=== PATIENT | female | born 1965 | race Native Hawaiian/Other Pacific Islander ===

== ENCOUNTER 2018-12-30 05:55 | Observation (INO) | payer BC, OTHER ==
[2018-12-24 11:12] LABS: Eosinophils # (Auto) 0.2 K/mm3 (0.0-0.4); Eosinophils % (Auto) 2.7 % (0.0-4.3); Monocytes # (Auto) 0.4 K/mm3 (0.0-0.8); Monocytes % (Auto) 5.3 % (0.0-7.3)
--- NOTE | 2018-12-24 11:13 | Anesthesia Consultation ---
Anesthesia Consult and Med Hx Date of service: 12/30/18 - Airway Anesthetic Teeth Evaluation: Good, Crowns ROM Head & Neck: Adequate Mental/Hyoid Distance: Adequate Mallampati Class: Class III Intubation Access Assessment: Probably Good - Pre-Operative Health Status ASA Pre-Surgery Classification: ASA2 Proposed Anesthetic Plan: General Nerve Block: TAP if needed - Cardiovascular System Hx Hypertension: Yes (x 4 yrs) Hx Coronary Artery Disease: No (Saw certified meeting professional and has clearance) - Central Nervous System Hx Psychiatric Problems: No - Gastrointestinal Hx Gastroesophageal Reflux Disease: Yes - Hematic Hx Anemia: Yes (Has had Iron infusions) - Other Systems Hx Alcohol Use: Yes (Occas) Hx Cancer: No
[2018-12-24 11:33] LABS: BUN/Creatinine Ratio 22; Blood Urea Nitrogen 13 mg/dL (7-17); Calcium 9.1 mg/dL (8.4-10.2); Hemolysis Index 14
[2018-12-24 12:01] LABS: Basophils % (Auto) 0.7 % (0.0-1.8); Hematocrit 38.5 % (30.3-42.9); Hemoglobin 13.3 gm/dl (10.1-14.3); Lymphocytes # (Auto) 2.2 K/mm3 (1.2-5.4); Lymphocytes % (Auto) 29.1 % (13.4-35.0); Mean Corpuscular HGB Conc 35 % (30-34); Mean Corpuscular Volume 89 fl (79-97); Platelet Count 315 K/mm3 (140-440); Red Blood Count 4.31 M/mm3 (3.65-5.03); Red Cell Distribution Width 18.2 % (13.2-15.2)
--- NOTE | 2018-12-29 13:27 | History and Physical Report ---
History of Present Illness Date of examination: 12/24/18 Date of admission: 12/30/2018 Chief complaint: heavy periods History of present illness: Visit Type: Pre-Op CC: PRe op. History of Present Illness: pt presents for Pre op visit: BRISAH, bilat Salpigectomy....nguyen Pt here for pre op for LAVH with BS. She has had long h/o fibroid, menorrhagia that has resulted in anemia. All risk/benefits/alternatives were d/w pt and questions were addressed and answered. Pt was given ample time to ask questions all of which were addressed and answered. Consents signed and given to pt to bring to pre op. She has been medically cleared by PCP. Vital Signs: Patient Profile: 53 Years Old Female LMP: 12/12/2018 Height: 58.04 inches Weight: 160 pounds BMI: 33.39 BP sittin / 84 (left arm) Menstrual History: LMP (date): 12/12/2018 Current Method of Contraception: BTL Past History : 5 Term Births: 4 Living Children: 4 Para: 4 Elect. Ab: 1 IMPORT/EXPORT AGENT History Uterine Surgery (not C/S): negative Operations: Tubal Ligation Abdominoplasty u8pper endoscopy. GERD. lost wt and changed diet Hospitalizations: negative Anesthesia Complications: positive Abnormal PAP: negative Uterine Anomaly: negative DMITRY Exposure: negative Infertility: negative Infection History HIV Risk Eval: no Personal hx. of genital herpes: no Hx of STD: None Active Medications (reviewed today): LIPID RX () HCTZ () OMEPRAZOLE () MULTI VITAMIN () Current Allergies (reviewed today): No known allergies Past Medical History: Reviewed history from 11/22/2010 and no changes required: Negative Past Medical History Past Surgical History: Reviewed history from 05/04/2015 and no changes required: Tubal Ligation Abdominoplasty u8pper endoscopy. GERD. lost wt and changed diet Family History Summary: Reviewed history Last on 10/30/2017 and no changes required:12/29/2018 General Comments - FH: father non hodgkins lymphoma stem cell transplant. father triple by pass Social History: Reviewed history from 10/30/2017 and no changes required: Patient is no e/t/d [Risk Factors-CCC] [ROS-CCC] [Labs In-House] Physical Exam Appearance: well developed, well nourished, no acute distress Other Exams Lungs: no rales, rhonchi, or wheezes Heart: S1, S2, no murmur, rub, or gallop Abdomen: soft, non-tender, no masses, bowel sounds normal Extremities: normal alignment, no joint enlargement, crepitus, masses or tenderness; normal tone and strength Genitourinary Exam Comments: deferred until EUA [Problems-CCC] Impression & Recommendations: Problem # 1: Menorrhagia/Menometrorrhagia (ICD-626.2) (SIE77-H29.0) The following medications were removed from the medication list: Ibuprofen 800 Mg Oral Tablet (Ibuprofen) ..... 1 po q6 hr prn pain Orders: Ofc Vst Est 27339 ([id number]-[id number]) -pre op completed Past History Past Medical History: no pertinent history, hypertension Past Surgical History: other (see hpi) IMPORT/EXPORT AGENT History: other (see hpi) Family/Genetic History: other (see hpi) Social history: other (see hpi) Medications and Allergies Allergies Allergy/AdvReac Type Severity Reaction Status Date / Time No Known Allergies Allergy Unverified 12/23/18 17:43 Home Medications Medication Instructions Recorded Confirmed Last Taken Type Fenofibrate 160 mg PO DAILY 12/23/18 12/23/18 Unknown History Omeprazole 40 mg PO DAILY 12/23/18 12/23/18 Unknown History Tranexamic Acid 2 tab PO TID 12/23/18 12/23/18 Unknown History hydroCHLOROthiazide [HCTZ] 25 mg PO DAILY 12/23/18 12/23/18 Unknown History Active Meds: Active Medications Acetaminophen (Tylenol) 650 mg PO PREOP NR Stop: 12/30/18 23:01 Celecoxib (Celebrex) 200 mg PO PREOP NR Stop: 12/30/18 23:00 Gabapentin (Neurontin) 300 mg PO PREOP NR Stop: 12/30/18 23:00 Lactated Ringer's (Lactated Ringers) 1,000 mls @ 125 mls/hr IV DIRECT DANILO Midazolam HCl (Versed) 2 mg IV PREOP NR Stop: 12/30/18 23:59 - Vital Signs Vital signs: Vital Signs Temp Pulse Resp BP Pulse Ox 98.6 F 64 18 135/72 98 12/24/18 10:25 12/24/18 10:25 12/24/18 10:25 12/24/18 10:25 12/24/18 10:25 Temp Pulse Resp BP Pulse Ox 98.6 F 64 18 135/72 98 12/24/18 10:25 12/24/18 10:25 12/24/18 10:25 12/24/18 10:25 12/24/18 10:25 - Physical Exam Cardiovascular: Normal S1, Normal S2 Lungs: Positive: Clear to auscultation, Normal air movement Abdomen: Positive: normal appearance, soft. Negative: distention, tenderness, guarding Genitourinary (Female): Positive: other (deferred until EUA) Extremities: Positive: normal. Negative: tenderness, edema Deep Tendon Reflex Grade: Normal +2 Results Result Diagrams: 12/24/18 10:40 12/24/18 10:40 All other labs normal. Assessment and Plan - Patient Problems (1) Perimenopausal menorrhagia Status: Acute Plan to address problem: -to OR for LAVH with BS -all risk, benefits,and alternative were d/w pt and questions were addressed and answered. -consents signed and placed on the (2) Hypertension Status: Acute Qualifiers: Hypertension type: essential hypertension Qualified Code(s): I10 - Essential (primary) hypertension Plan to address problem: -stable on meds -medically cleared for surgery by PCP
[~2018-12-30 05:55] MED LIST: LACTATED RINGERS 1,000 ML IV SCH; NEURONTIN PO NR; SUBLIMAZE IV ONE; TYLENOL PO NR; VERSED IV NR
[2018-12-30] MEDS ORDERED: NEURONTIN PO NR (06:00)
[2018-12-30] MEDS: LACTATED RINGERS 1,000 ML IV SCH ×3 (07:10→22:18)
[2018-12-30] MEDS ORDERED: NACL 0.9% 100 ML ONE (07:20)
[2018-12-30] MEDS ORDERED: MARCAINE 0.5% INFILTRATI ONE ×2 (07:20→08:29)
[2018-12-30] MEDS ORDERED: Vasostrict ONE (07:20)
[2018-12-30] MEDS ORDERED: SUBLIMAZE ONE (07:24)
[2018-12-30] MEDS ORDERED: DIPRIVAN 10 MG/ML IV ONE (07:24)
[2018-12-30] MEDS ORDERED: ZEMURON IV ONE ×2 (07:24→10:57)
[2018-12-30] MEDS ORDERED: XYLOCAINE MPF 2% ONE (07:24)
--- NOTE | 2018-12-30 07:27 | Anesthesia Day of Surgery ---
Anesthesia Day of Surgery - Day of Surgery Patient Examined: Yes Patient H&P Reviewed: Yes Patient is NPO: Yes Beta Blockers: No Cardiac Clearance: No Pulmonary Clearance: No Earl's Test: N/A
[2018-12-30] MEDS ORDERED: DECADRON ONE (07:55)
[2018-12-30] MEDS ORDERED: ANCEF/STERILE WATER 2 GM/20 ML IV NR (08:00)
[2018-12-30] MEDS ORDERED: ZOFRAN IV PRN (08:00)
[2018-12-30] MEDS ORDERED: ROBINUL ONE ×2 (08:19→11:02)
[2018-12-30] MEDS ORDERED: Vasostrict IM ONE (08:30)
[2018-12-30] MEDS ORDERED: NACL 0.9% IR ONE ×2 (08:32→09:17)
[2018-12-30] MEDS ORDERED: LACTATED RINGERS 1,000 ML ONE ×2 (08:52→10:57)
[2018-12-30] MEDS ORDERED: DILAUDID ONE (09:11)
[2018-12-30] MEDS ORDERED: TORADOL ONE (10:27)
[2018-12-30] MEDS ORDERED: BLOXIVERZ ONE (11:02)
[2018-12-30] MEDS: DILAUDID IV PRN ×3 (11:20→13:40)
--- NOTE | 2018-12-30 11:27 | Operative Report ---
Operative Report Operative Report: Date of procedure: 12/30/2018 Pre-operative diagnosis: Menometrorrhagia Anemia Post-operative diagnosis: Same plus cervical polyp Procedure name(s): Laparoscopic assisted vaginal hysterectomy Surgeon: Savi Bee MD Log Clerk: Dr. Bee Anesthesia: Endotracheal anesthesia EBL: 75 mL Urine output: 250 mL of blood-tinged urine at end of procedure Fluids: 2 L Findings: Approximately 1-2 cm cervical polyp protruding from the external cervical os Enlarged uterus Adhesions of the left adnexa to the pelvic sidewalls Adhesions of the omentum to the anterior abdominal wall Indications: Patient presents for above-stated procedure due to history of perimenopausal menorrhagia. Patient status post blood transfusions due to excessive vaginal bleeding. Patient desired definitive therapy with removal of uterus. Consents were signed and placed on the chart. All questions were addressed and answered. Procedure: Patient was taken to the operating room where she was placed under general endotracheal anesthesia. She was then prepped and draped in sterile fashion. It was at this point that the large Scoutmob uterine manipulator was placed inside of the uterus after the uterus was sounded to approximately 12 cm. Mariscal catheter was also placed at this time. Attention was then turned to the umbilicus in which a supraumbilical incision was made. Under direct visualization the 5 mm trocar was placed inside the peritoneum the peritoneum was then insufflated. As at this point that the laparoscopic portion of the procedure was performed. 2 lateral 5 mm ports were also placed under direct visualization. Using the tripolar instrument the upper pedicles were cauterized and transected to the including round ligament with excellent hemostasis noted bilaterally. Attention was then turned vaginally. A weighted speculum was placed into the vagina and the cervix was grasped with a single-tooth tenaculum 2. The cervix was then injected circumferentially with Pitressin. The cervix was then circumferentially incised with the scalpel and the bladder dissected off of the pubovesical cervical fascia anteriorly with a sponge stick and Metzenbaum scissors. The same procedure was performed posteriorly and the posterior cul-de-sac was entered into sharply without difficulty. At this point a Rosamaria Clamp was placed over the uterosacral ligaments on either side. These were then transected and suture ligated with 0 Vicryl. Hemostasis was assured. The cardinal ligaments were then clamped on both sides transected and suture ligated in similar fashion. The uterine arteries were then serially clamped with Rosamaria clamps transected and suture ligated on both sides. Excellent hemostasis was visualized. After it was clear that the uterus had been completely from all pedicles the uterus was removed vaginally intact with cervix intact. The vaginal cuff angles were closed with figure of 8 stitches of 0 Vicryl on both sides. The peritoneum was incorporated in the stitching of the vaginal cuff. A series of interrupted figure of 8 sutures using 0 Vicryl were used to close the entire vaginal cuff. Excellent hemostasis was noted. The vagina was then irrigated copiously. Attention was then turned laparoscopically at which time Tisseel was placed along the vaginal cuff laparoscopically. Again all pedicles were noted to be hemostatic. The ureters were identified bilaterally with peristalsis noted bilaterally. It should be noted also that during the procedure there was retrograde filling of the bladder with sterile milk was performed with no spillage of milk into the cavity. The ureter was identified on the right side however due to dense adhesions on the right side the ureter could not be clearly seen. All instruments were then removed from the abdomen and the vagina. All gas was released from the abdomen. The abdominal incisions were closed using 4-0 Monocryl. All of the abdominal incisions were injected with Marcaine without epi. Patient tolerated the procedure well sponge lap and needle counts were all correct 3 the patient was taken to the recovery room awake and in stable condition.
[2018-12-30] MEDS ORDERED: NORCO 5/325 PO PRN (11:28)
[2018-12-30] MEDS ORDERED: ZOFRAN ODT PO PRN (11:28)
[2018-12-30] MEDS: ANCEF/NS 1 GM/50 ML 1 GM/50 ML BAG IV SCH (16:15)
[2018-12-30] MEDS: TORADOL IV SCH ×2 (16:27→22:34)
[2018-12-31] MEDS: ANCEF/NS 1 GM/50 ML 1 GM/50 ML BAG IV SCH (00:02)
[2018-12-31] MEDS: TORADOL IV SCH ×2 (04:08→11:08)
[2018-12-31 06:18] LABS: Hemoglobin 10.2 gm/dl (10.1-14.3)
[2018-12-31] MEDS ORDERED: HCTZ PO SCH (10:00)
[2018-12-31 11:51] VITALS: BP 113/64
--- NOTE | 2018-12-31 12:53 | Progress Note ---
Assessment and Plan - Patient Problems (1) Perimenopausal menorrhagia Current Visit: No Status: Acute (2) Hypertension Current Visit: No Status: Acute Qualifiers: Hypertension type: essential hypertension Qualified Code(s): I10 - Essential (primary) hypertension (3) S/P laparoscopic assisted vaginal hysterectomy (LAVH) Current Visit: Yes Status: Acute Plan to address problem: -routine post op care -d/c home now (4) H/O unilateral salpingectomy Current Visit: Yes Status: Acute Plan to address problem: -routine post op care -d/c chaparrita now Subjective - Subjective Date of service: 12/31/18 Principal diagnosis: POD #1 s/p LAVH with RS Interval history: Pt doing well today. Desires d/c home. Tolerating a regular diet and ambulating w/o assistance. Pain is well controlled. Findings of sx again d/w pt and her . Patient reports: appetite normal, voiding normally, pain well controlled, bowel movement, ambulating normally, no dizzy ambulation Objective - Vital Signs Latest vital signs: Vital Signs Temp Pulse Resp BP BP Pulse Ox 12/31/18 11:43 98.5 F 86 18 113/64 97 12/31/18 07:57 98.9 F 87 18 96/52 96 12/31/18 04:31 98.7 F 79 103/55 98 12/30/18 23:37 84 102/44 97 12/30/18 23:27 98.7 F 12/30/18 20:00 98.9 F 90 20 109/66 95 12/30/18 19:40 18 12/30/18 15:55 97.8 F 85 18 119/63 96 Intake and Output 12/30/18 12/31/18 12/31/18 22:59 06:59 14:59 Intake Total 1342 713 0932 Output Total 1400 3500 550 Balance 10 -3200 1010 Intake: IV 1050 ANCEF/NS 1 GM/50 ML 1 gm 50 In 50 ml @ 100 mls/hr IV Q8H DANILO Rx#:[id number] Lactated Ringers 1,000 ml 1000 @ 125 mls/hr IV DIRECT DANILO Rx#:[id number] Oral 360 300 840 Intake, Free Water 720 Output: Urine 1400 3500 550 Uretheral (Mariscal) 1400 1600 Void 1900 550 Other: Total, Intake Amount 360 200 240 Total, Output Amount 900 200 Voiding Method Indwelling Catheter # Voids Void 1 3 # Bowel Movements 1 - Exam Cardiovascular: Present: Normal S1, Normal S2 Lungs: Present: Clear to auscultation, Normal air movement Abdomen: Present: normal appearance, soft, normal bowel sounds. Absent: distention, tenderness, guarding Extremities: Present: normal Incision: Present: normal, dry, intact - Labs Labs: Abnormal lab results 12/31/18 Range/Units 05:50 Hct 30.0 L (30.3-42.9) %
--- NOTE | 2018-12-31 12:55 | Discharge Summary ---
Providers - Providers Date of Admission: 12/30/18 11:28 Date of discharge: 12/31/18 Attending physician: MAGDA GUTIERREZ Primary care physician: MAYA MIX DO Hospitalization Reason for admission: other (LAVH WITH BS) Procedure: other (LAVH WITH RS) Procedure details: SEE OP NOTE Incision: normal, dry, intact Discharge diagnosis: other (S/P LAVH WITH BS) Hospital course: PT ADMITTED FOR ABOVE STATED PROCEDURE. POST OP COURSE WAS NOT COMPLICATE. PT TO BE D/C HOME TODAY. Condition at discharge: Good Disposition: DC-01 TO HOME OR SELFCARE - Discharge Diagnoses (1) Perimenopausal menorrhagia Status: Acute (2) Hypertension Status: Acute Qualifiers: Hypertension type: essential hypertension Qualified Code(s): I10 - Essential (primary) hypertension (3) S/P laparoscopic assisted vaginal hysterectomy (LAVH) Status: Acute (4) H/O unilateral salpingectomy Status: Acute Plan - Discharge Medications Prescriptions: Ibuprofen 800 mg PO Q6HR #30 tablet oxyCODONE /ACETAMINOPHEN [Percocet 5/325] 1 tab PO Q4HR #30 tab - Provider Discharge Summary Activity: routine, no sex for 6 weeks, no heavy lifting 4 weeks Diet: routine Instructions: routine Additional instructions: [] Smoking cessation referral if applicable(refer to patient education folder for contact #) [] Refer to [facility] Booklet Call your doctor immediately for: * Fever > 100.5 * Heavy vaginal bleeding ( >1 pad per hour) * Severe persistent headache * Shortness of breath * Reddened, hot, painful area to leg or breast * Drainage or odor from incision. * Keep incision clean and dry at all times and follow doctor's instructions regarding bathing/showering - Follow up plan Follow up: MAYA MIX DO [Primary Care Provider] - 7 Days MAGDA GUTIERREZ MD [Staff Physician] - 7 Days
== END 2018-12-31 14:30 | disposition home or self-care (01) ==
LOC: OR 05:55 → OB 11:28
PROVIDERS: ADMIT Obstetrics & Gynecology; ATTEND Obstetrics & Gynecology
DX: N92.0 Excessive and frequent menstruation with regular cycle (principal); D64.9 Anemia, unspecified; N92.4 Excessive bleeding in the premenopausal period; I10 Essential (primary) hypertension; K21.9 Gastro-esophageal reflux disease without esophagitis; Z90.721 Acquired absence of ovaries, unilateral; Z90.710 Acquired absence of both cervix and uterus
CPT/HCPCS: 36415; 58554; 80048; 84703; 85014; 85018; 85025; 86850; 86900; 86901; 88305; 88307; 88341; 88342; 96365; 96366; 96375; 96376; A4217; G0378; J0690; J1100; J1170; J1885; J2250; J2704; J2710; J3010; J7120; 88302; Q0162